=== PATIENT | male | born 1980 | race Caucasian/White ===

== ENCOUNTER 2016-07-12 13:51 | Emergency (ER) | payer OTHER ==
[~2016-07-12 13:51] MED LIST: ATIVAN0.5 MG PO; BENTYL20 MG PO; LEXAPRO20 M2 PO; PRILOSEC OTC20 MG; ZANTAC150 MG PO
[2016-07-12] MEDS ORDERED: PRINIVIL5 M1 PO (14:00)
[2016-07-12] MEDS ORDERED: LIPITOR10 M1 PO (14:01)
[2016-07-12] MEDS ORDERED: VITAMIN D PO (14:02)
== END 2016-07-12 16:06 ==
LOC: EDMED 13:51
DX: S09.90XA Unspecified injury of head, initial encounter (principal); I10 Essential (primary) hypertension; E78.5 Hyperlipidemia, unspecified; Z79.899 Other long term (current) drug therapy; W22.8XXA Striking against or struck by other objects, initial encounter; Y92.69 Other specified industrial and construction area as the place of occurrence of the external cause; Y99.0 Civilian activity done for income or pay